=== PATIENT | female | born 1975 | race Caucasian/White ===

== ENCOUNTER → 2017-02-16 | Outpatient (CLI) | payer BC ==
[~2017-02-16] MED LIST: PROZAC 20MG20 MG PO
== END ==
LOC: MC.RAD 13:08
DX: Z12.31 Encounter for screening mammogram for malignant neoplasm of breast (principal); R92.0 Mammographic microcalcification found on diagnostic imaging of breast

== ENCOUNTER → 2017-02-20 | Outpatient (CLI) | payer BC | LOC: MC.RAD 14:09 | DX: R92.0 Mammographic microcalcification found on diagnostic imaging of breast (principal) ==

== ENCOUNTER → 2017-02-21 | Outpatient (CLI) | payer BC | LOC: MC.RAD 08:07 | DX: R92.0 Mammographic microcalcification found on diagnostic imaging of breast (principal) ==

== ENCOUNTER → 2018-01-08 | Outpatient (CLI) | payer BC | LOC: MC.RAD 08:48 | DX: N60.01 Solitary cyst of right breast (principal) ==

== ENCOUNTER → 2018-04-29 | Outpatient (CLI) | payer BC | LOC: MC.RAD 10:39 | DX: Z12.31 Encounter for screening mammogram for malignant neoplasm of breast (principal); N63.10 Unspecified lump in the right breast, unspecified quadrant ==

== ENCOUNTER → 2018-05-06 | Outpatient (CLI) | payer BC | LOC: MC.RAD 08:52 | DX: N63.10 Unspecified lump in the right breast, unspecified quadrant (principal) | CPT/HCPCS: G0279 ==

== ENCOUNTER → 2018-05-14 | Outpatient (CLI) | payer BC | LOC: MC.RAD 07:35 | DX: N63.12 Unspecified lump in the right breast, upper inner quadrant (principal) ==

== ENCOUNTER → 2019-04-11 | Outpatient (CLI) | payer BC | LOC: MC.RAD 08:07 | DX: D24.2 Benign neoplasm of left breast (principal) | CPT/HCPCS: G0279 ==

== ENCOUNTER → 2019-04-15 | Outpatient (CLI) | payer BC | LOC: MC.RAD 07:15 | DX: N63.20 Unspecified lump in the left breast, unspecified quadrant (principal); D24.2 Benign neoplasm of left breast ==